=== PATIENT | female | born 1950 | race Caucasian/White ===

== ENCOUNTER 2017-12-30 15:05 | Inpatient (IN) | payer MEDICARE, OTHER ==
[~2017-12-30] VITALS: Ht 165.1 cm; Wt 74.8 kg
--- NOTE | ~2017-12-30 | PROC ---
[facility] [place] [address] [place] [address] PROCEDURE REPORT Name: TALA HUBER Room: [address] IN M.R.#: [id number] Admission: 12/30/17 Attend Phys: Ajay Fisher Discharge: 01/02/18 Date of : 46 Report #: [id number] THIS REPORT FOR: //name// For GI report, Please see the Provation report in Perceptive 7. By: [id number] Records Staff REMBERTO /MARIELY
[2017-12-30 15:07] VITALS: BP 113/84
[2017-12-30 15:28] LABS: ABSOLUTE BASOPHILS 0.1 thou/uL (0.0-0.2); ABSOLUTE EOSINOPHILS 0.3 thou/uL (0.0-0.7); ABSOLUTE LYMPHOCYTES 1.8 thou/uL (0.8-5.3); BASOPHILS 0.9 %; EOSINOPHILS 3.4 %; HEMATOCRIT 43.5 % (37.0-47.0); HEMOGLOBIN 14.2 gm/dL (12.0-15.0); MCH 28.5 pg (26.0-34.0); MCHC 32.7 g/dL (28.0-37.0); MCV 87.2 fL (80.0-100.0); MONOCYTES 10.6 %; MPV 7.5 fl. (7.2-11.1); NUCLEATED RBCS 0 /100WBC; PLATELET COUNT* 253 thou/uL (150-400); POLYS 65.1 %; RBC 4.98 mil/uL (4.20-5.00); RDW-CV 14.4 % (10.5-14.5); WBC 9.2 thou/uL (4.0-11.0)
[2017-12-30 15:37] LABS: ANION GAP 10 mmol/L (7-16); BUN 14 mg/dL (7-18); CALCIUM 9.4 mg/dL (8.5-10.1); CHLORIDE 104 mmol/L (98-107); CO2 28 mmol/L (21-32); GLUCOSE 106 mg/dL (70-99); POTASSIUM 3.8 mmol/L (3.5-5.1); SODIUM 142 mmol/L (136-145)
[2017-12-30 15:47] LABS: ALBUMIN 3.2 g/dL (3.4-5.0); ALKALINE PHOSPHATASE 81 U/L (46-116); LIPASE 281 U/L (73-393); SGOT 19 U/L (15-37); SGPT 37 U/L (30-65); TOTAL BILIRUBIN 0.4 mg/dL (<0.1-1.0); TOTAL PROTEIN 7.2 g/dL (6.4-8.2); TROPONIN-I LEVEL <0.06 ng/mL (<0.06)
--- NOTE | 2017-12-30 16:31 | EKG ---
[place] [address] ELECTROCARDIOGRAM REPORT Name: TALA HUBER Room: [facility]#: [id number] Admission: Attend Phys: Discharge: Date of : 46 Report #: [id number] THIS REPORT FOR: //name// [facility] ED Test Date: 2017-12-30 Test Time: 15:14:23 Pat Name: TALA HUBER Department: Room: Gender: F [employer] Architect: Brandon SHAHID : 1950 Requested By: Leticia Metcalf Order Number: [id number] MD: Konrad Moss Measurements Intervals [place] Rate: 88 P: -6 DC: 156 QRS: 86 QRSD: 84 T: 11 QT: 346 QTc: 419 Interpretive Statements Sinus rhythm Borderline right axis deviation Low voltage, precordial leads Abnormal R-wave progression, early transition Borderline T abnormalities, anterior leads No previous ECG available for comparison Electronically Signed On 12-30-2017 16:31:36 MOLDER SWEEP by Konrad Moss [email or web address] <ELECTRONICALLY SIGNED> By: Konrad Moss MD, [facility] 12/30/17 1631 1514 1514 Konrad Moss MD, [facility] /EPI
[2017-12-30 20:00] VITALS: BP 105/60
[2017-12-30 20:01] VITALS: BP 124/68
[2017-12-31 00:15] LABS: URINE BILIRUBIN NEGATIVE (Negative); URINE BLOOD NEGATIVE (Negative); URINE CLARITY CLEAR; URINE COLOR YELLOW; URINE GLUCOSE-RANDOM NEGATIVE (Negative); URINE KETONES NEGATIVE (Negative); URINE LEUKOCYTES-REFLEX NEGATIVE (Negative); URINE NITRITE-REFLEX NEGATIVE (Negative); URINE PROTEIN NEGATIVE (Negative); URINE UROBILINOGEN 0.2 E.U./dl (0.2-1.0)
[2017-12-31 00:22] LABS: AMP/METHAMP Negative (Negative); BARBITURATES Negative (Negative); BENZODIAZEPINES Negative (Negative); COCAINE Negative (Negative); METHADONE Negative (Negative); OPIATES Negative (Negative); PCP Negative (Negative); THC Negative (Negative)
[2017-12-31 04:57] LABS: HEMATOCRIT 40.3 % (37.0-47.0); HEMOGLOBIN 13.3 gm/dL (12.0-15.0); MCH 28.7 pg (26.0-34.0); MCHC 32.9 g/dL (28.0-37.0); MCV 87.4 fL (80.0-100.0); RBC 4.61 mil/uL (4.20-5.00); RDW-CV 14.4 % (10.5-14.5); WBC 8.9 thou/uL (4.0-11.0)
[2017-12-31 05:11] LABS: ALBUMIN 2.5 g/dL (3.4-5.0); CALCIUM 8.9 mg/dL (8.5-10.1); POTASSIUM 4.1 mmol/L (3.5-5.1); TOTAL BILIRUBIN 0.8 mg/dL (<0.1-1.0)
[2017-12-31 08:34] VITALS: BP 79/49
[2017-12-31 10:57] VITALS: BP 96/45
[2017-12-31 15:26] VITALS: BP 113/64
[2017-12-31 19:00] VITALS: BP 107/51
[2018-01-01 00:25] VITALS: BP 100/48
[2018-01-01 03:56] LABS: ABSOLUTE EOSINOPHILS 0.3 thou/uL (0.0-0.7); ABSOLUTE LYMPHOCYTES 1.4 thou/uL (0.8-5.3); ABSOLUTE MONOCYTES 0.9 thou/uL (0.0-1.2); ABSOLUTE NEUTROPHILS 4.1 thou/uL (1.6-8.1); BASOPHILS 0.6 %; HEMATOCRIT 36.3 % (37.0-47.0); LYMPHOCYTES 20.7 %; MCH 28.7 pg (26.0-34.0); MCHC 33.1 g/dL (28.0-37.0); MCV 86.9 fL (80.0-100.0); MONOCYTES 12.8 %; MPV 7.8 fl. (7.2-11.1); NUCLEATED RBCS 0 /100WBC; PLATELET COUNT* 191 thou/uL (150-400); POLYS 61.9 %; RBC 4.18 mil/uL (4.20-5.00); RDW-CV 14.3 % (10.5-14.5); WBC 6.7 thou/uL (4.0-11.0)
[2018-01-01 04:15] LABS: ALBUMIN 2.3 g/dL (3.4-5.0); CALCIUM 8.5 mg/dL (8.5-10.1); CREATININE 0.9 mg/dL (0.6-1.3); TOTAL BILIRUBIN 0.7 mg/dL (<0.1-1.0); TOTAL PROTEIN 5.6 g/dL (6.4-8.2)
[2018-01-01 04:19] VITALS: BP 100/51
[2018-01-01 08:00] VITALS: BP 114/58
[2018-01-01 09:35] VITALS: BP 114/58
[2018-01-01 15:24] VITALS: BP 125/52
[2018-01-01 20:00] VITALS: BP 132/60
[2018-01-02 04:22] LABS: ABSOLUTE BASOPHILS 0.1 thou/uL (0.0-0.2); ABSOLUTE EOSINOPHILS 0.4 thou/uL (0.0-0.7); ABSOLUTE LYMPHOCYTES 1.3 thou/uL (0.8-5.3); ABSOLUTE MONOCYTES 0.8 thou/uL (0.0-1.2); ABSOLUTE NEUTROPHILS 3.9 thou/uL (1.6-8.1); BASOPHILS 0.9 %; EOSINOPHILS 6.4 %; HEMATOCRIT 37.8 % (37.0-47.0); HEMOGLOBIN 12.4 gm/dL (12.0-15.0); LYMPHOCYTES 20.5 %; MCH 28.4 pg (26.0-34.0); MCHC 32.9 g/dL (28.0-37.0); MCV 86.4 fL (80.0-100.0); MONOCYTES 11.8 %; NUCLEATED RBCS 0 /100WBC; PLATELET COUNT* 215 thou/uL (150-400); POLYS 60.4 %; RBC 4.37 mil/uL (4.20-5.00); RDW-CV 14.3 % (10.5-14.5); WBC 6.4 thou/uL (4.0-11.0)
[2018-01-02 04:37] LABS: CALCIUM 8.9 mg/dL (8.5-10.1); CREATININE 0.8 mg/dL (0.6-1.3); POTASSIUM 3.6 mmol/L (3.5-5.1)
[2018-01-02 07:53] VITALS: BP 128/64
[2018-01-02 11:01] VITALS: BP 128/64
[2018-01-02 12:55] VITALS: BP 107/48
[2018-01-02 15:52] VITALS: BP 102/58
[2018-01-02] MEDS ORDERED: LEVAQUIN 500 M500 M2 PO (17:17)
[2018-01-02] MEDS ORDERED: PROTONIX40 M4 PO (17:18)
[2018-01-02 17:20] VITALS: BP 102/58
[2018-01-02] MEDS ORDERED: TESSALON PERLE100 MG PO (17:20)
--- NOTE | 2018-01-07 11:08 | PATH ---
[address] [address] PATHOLOGY RPT PROCEDURE Name: TALA HUBER Room: [address] IN M.R.#: [id number] Admission: 12/30/17 Date of : 46 Discharge: 01/02/18 Report #: [id number] Path Case #: [id number] [facility] Accession Number: [id number] . 01 Material submitted: . PART A: ANTRAL EROSION BIOPSY PART B: DUODENAL BIOPSY FOR DUODENITIS . 01 Clinical history: . A: Antral erosion B: Rule out duodenitis . 02 Diagnosis: A. Antral erosion biopsy: - Mild nonspecific active antral gastritis, negative for Helicobacter pylori organisms, granulomas and dysplasia. . B. Duodenal biopsy for duodenitis: - Mild nonspecific active duodenitis, negative for granulomas, viral inclusions and dysplasia. . ([facility]HANE:mmabby; 01/05/18) QL/01/05/2018 . 02 Comment: Special stain (A): H. pylori immuno. . (BERHANE:mml; 01/05/18) . 02 Electronically signed: . Keshawn Wheeler MD, Pathologist NPI- [id number] . 01 Gross description: . A. The specimen is received in formalin, labeled "Tala Huber, antral erosion biopsy", is a meyers soft tissue 0.5 cm in greatest dimension, entirely submitted in A1. . B. The specimen is received in formalin, labeled "Tala Huber, duodenal biopsy for duodenitis", is a emyers soft tissue 0.5 cm in greatest dimension, entirely submitted in B1. ([facility]; 01/02/2018) [facility]S/ . 02 Microscopic: . . . 02 Pathologist provided ICD-10: [place] [id number] PATHOLOGY RPT PROCEDURE Name: CECILETALA Cannon Room: [address] IN [facility]#: [id number] Admission: 12/30/17 Date of : 46 Discharge: 01/02/18 Report #: [id number] Path Case #: [id number] K29.60, K29.80 . 02 CPT . 414160, [id number], [id number] Specimen Comment: A courtesy copy of this report has been sent to Specimen Comment: [phone], , . Specimen Comment: Report sent to ,DR GOODE / DR العراقي Specimen Comment: A duplicate report has been generated due to demographic updates. Performed at: [address], [place], [place] [id number] MD Seng Jarrett MD Phone: [phone] Performed at: 02 [facility] [address], [place], [place] [id number] MD Keshawn Wheeler MD Phone: [phone]
--- NOTE | 2018-01-12 17:35 | CON ---
[facility] [address] [place] [address] CONSULTATION Name: HUBERTALA K Room: [address] IN M.R.#: [id number] Admission: 12/30/17 Attend Phys: Ajay Fisher Discharge: 01/02/18 Date of : 46 Report #: [id number] THIS REPORT FOR: //name// CC: Junior Castaneda MD DATE OF SERVICE: 12/31/2017 REFERRING PHYSICIAN: Jose Castaneda DO REASON FOR CONSULTATION: Abdominal pain. IMPRESSION: 1. Epigastric and right upper quadrant pain -- evaluate for peptic ulcer disease versus biliary tract disease. 2. Chronic nonsteroidal use in the form of Aleve and Excedrin. 3. Chronic diarrhea with associated intermittent fecal incontinence. RECOMMENDATIONS: 1. Since her abdominal ultrasound and CT scan of the abdomen and pelvis were unremarkable, we will proceed with an upper endoscopy and a CCK -- PIPIDA scan. 2. We will begin the patient on clear liquid diet for now. 3. Continue IV fluids, pain medications, antiemetics, etc. 4. Eventually, she will need a colonoscopy, but for now her primary issues take precedence for the same. I have discussed these impressions and plans with the patient as well and she is agreeable to the same. HISTORY OF PRESENT ILLNESS: The patient very pleasant 67-year-old white female who has been having problems with epigastric pain, which has been ongoing since the day prior to admission. She states that she has been eating some chicken tacos when the pain started and she had to call EMS 10 minutes later. The pain is constant and radiates around to her back. She was having some nausea and vomiting as well with the same. She states she has history of pancreatitis in the past, but it is unclear how she got that diagnosis. She does take chronic Aleve and Excedrin for back aches and pains as well as headaches and this is something she takes on a daily basis. She has had some nausea and vomiting without hematemesis or melena. Her weight has been stable. She has already undergone laboratory testing as well as an abdominal ultrasound and CT scan, which have been unrevealing. She presents now for evaluation. ALLERGIES: CODEINE. MEDICATIONS: At home [place]ve [place] [address] CONSULTATION Name: HUBERTALA Room: [address]#: [id number] Admission: 12/30/17 Attend Phys: Ajay Fisher Discharge: 01/02/18 Date of : 46 Report #: [id number] PAST MEDICAL HISTORY: Remarkable for previous history of problem with asthma. She had previous appendectomy, tonsillectomy and history of pancreatitis by her report. SOCIAL HISTORY: The patient does not smoke or drink. FAMILY HISTORY: Negative. PHYSICAL EXAMINATION: GENERAL: Pleasant 67-year-old white female who is awake and alert. CARDIOPULMONARY: Revealed a regular rate and rhythm. LUNGS: Clear. ABDOMEN: Soft. She was tender in the epigastric and right upper quadrant. No rebound or guarding noted. LABORATORY TESTS: Revealed a white count of 9.2, hemoglobin 14.2 and platelet count 252,000. MCV is 87.2 and RDW 14.4. Sodium 142, potassium 3.8, chloride 104, bicarbonate 28, BUN 14 and creatinine 1.0. GFR is 55. Total bilirubin 0.4 with alkaline phosphatase 81, AST is 19, ALT 37. Her albumin is 3.2. Lipase is normal at 281. CT scan of the abdomen and pelvis with contrast revealed postsurgical change from previous appendectomy. There is a possibility of 3.0 cm mass at the 6 o'clock position of her left breast and this has already been evaluated. Otherwise, she has some fatty liver, otherwise unremarkable. DISCUSSION: At the present time, the patient has had some problem with epigastric pain, which sounds more pretty much like biliary tract disease. However, she does take ibuprofen and Excedrin. For this reason, we will proceed with upper endoscopy and CCK-PIPIDA scan tomorrow and make further recommendations thereafter. <ELECTRONICALLY SIGNED> By: Tomasz Doan DO 01/12/18 1735 1635 [id number] Doan DO /nt
== END 2018-01-02 18:56 | disposition home or self-care (01) | DRG 871 ==
LOC: M.ERS 15:05 → M.ORTHSURG 18:55 → M.TBA-ER 18:55 → M.ORTHSURG 19:57
PROVIDERS: Internal Medicine Gastroenterology; Personal Emergency Response Attendant; ADMIT Internal Medicine
PROC: 0DB68ZX Excision of Stomach, Via Natural or Artificial Opening Endoscopic, Diagnostic (ICD-10-PCS; principal; 2018-01-02)
PROC: 0DB98ZX Excision of Duodenum, Via Natural or Artificial Opening Endoscopic, Diagnostic (ICD-10-PCS; 2018-01-02)
DX: A41.9 Sepsis, unspecified organism (principal); J18.9 Pneumonia, unspecified organism; J45.909 Unspecified asthma, uncomplicated; I95.9 Hypotension, unspecified; K52.9 Noninfective gastroenteritis and colitis, unspecified; R15.9 Full incontinence of feces; K82.8 Other specified diseases of gallbladder; K29.70 Gastritis, unspecified, without bleeding; K80.50 Calculus of bile duct without cholangitis or cholecystitis without obstruction; Z90.49 Acquired absence of other specified parts of digestive tract; Z88.6 Allergy status to analgesic agent; Z79.1 Long term (current) use of non-steroidal anti-inflammatories (NSAID); Z79.899 Other long term (current) drug therapy; Z28.21 Immunization not carried out because of patient refusal